=== PATIENT | male | born 1950 | race American Indian/Alaskan Native ===

== ENCOUNTER 2022-05-05 08:20 | Emergency (ER) | payer MEDICARE, OTHER ==
--- NOTE | 2022-05-05 09:21 | Cat Scan Report ---
CT HEAD WITHOUT CONTRAST INDICATION: neuro deficits <6hrs or sx present upon awakening. TECHNIQUE: All CT scans at this location are performed using CT dose reduction for ALARA by means of automated e xposure control. COMPARISON: CT 10/17/2021 FINDINGS: HEMORRHAGE: None. EXTRA-AXIAL SPACES: Normal in size and morphology for the patient's age. VENTRICULAR SYSTEM: Normal in size and morphology for the patient's age. BRAIN PARENCHYMA: Extensive white matter hypodensities are again noted consistent with microangiopath y. Chronic left maxwell radiata lacunar infarct is noted. Bilateral basal ganglia calcification is aga in noted. MIDLINE SHIFT OR HERNIATION: None. ORBITS: Normal as visualized. SOFT TISSUES OF HEAD: Normal. CALVARIUM: Normal. VISUALIZED PARANASAL SINUSES AND MASTOID AIR CELLS: Clear. ADDITIONAL FINDINGS: None. IMPRESSION: 1. No acute intracranial abnormality. Signer Name: Yousif Madrid MD Signed: 05/05/2022 9:17 AM Workstation Name: [id number]
[2022-05-05 10:01] LABS: Basophils # (Auto) 0.1 K/mm3 (0.0-0.1); Basophils % (Auto) 1.2 % (0.0-1.8); Eosinophils # (Auto) 0.1 K/mm3 (0.0-0.4); Eosinophils % (Auto) 1.5 % (0.0-4.3); Hematocrit 40.5 % (35.5-45.6); Hemoglobin 13.5 gm/dl (11.8-15.2); Lymphocytes % (Auto) 20.7 % (13.4-35.0); Mean Corpuscular HGB Conc 33 % (32-34); Mean Corpuscular Volume 94 fl (84-94); Monocytes # (Auto) 0.3 K/mm3 (0.0-0.8); Monocytes % (Auto) 7.3 % (0.0-7.3); Platelet Count 250 K/mm3 (140-440); Red Blood Count 4.32 M/mm3 (3.65-5.03); Red Cell Distribution Width 13.6 % (13.2-15.2)
[2022-05-05 10:03] LABS: INR 0.93 (0.87-1.13)
[2022-05-05 10:04] LABS: Partial Thromboplastin Time 26.5 Sec. (24.2-36.6)
[2022-05-05 10:33] LABS: BUN/Creatinine Ratio 14; Blood Urea Nitrogen 11 mg/dL (9-20); Calcium 9.6 mg/dL (8.4-10.2); Hemolysis Index 3
--- NOTE | 2022-05-05 10:44 | Emergency Department Report ---
HPI - General Chief Complaint: Dizziness - HPI HPI: Room 19 The patient is a 71-year-old male present with chief complaint of dizziness. The patient states he went to work this morning in his usual state of health. 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 The patient states he then walked to the break room and sat down and EMS was called. EMS reported the patient was hypertensive with a systolic of 189. The patient states that his symptoms lasted approximate 30 minutes and then subsided. Patient currently denies complaints. Patient denied ever having chest pain, shortness of breath, palpi tations or nausea/vomiting. Patient denies any preceding trauma. The patient's states that he works outside [employer] daily and does not stay hydrated ED Past Medical Hx - Past Medical History Previous Medical History?: Yes Hx CVA: Yes (Some residual left-sided weakness) Hx of Cancer: Yes (Prostate CA status post XRT) Additional medical history: Hypercholesterolemia - Surgical History Past Surgical History?: No - Family History Family history: no significant - Social History Smoking Status: Former Smoker (None since November 2021) Substance Use Type: None (Denies illicit drug use) - Medications Home Medications: Home Medications Medication Instructions Recorded Confirmed Last Taken Type Aspirin 81 mg PO QDAY #30 tablet 10/21/21 Unknown Rx AtorvaSTATin [Lipitor] 80 mg PO QHS #30 tablet 10/21/21 Unknown Rx Meclizine [Antivert] 25 mg PO TID PRN #20 05/05/22 Unknown Rx ED Review of Systems ROS: Stated complaint: DIZZY Other details as noted in HPI Constitutional: other ([place] hot) Eyes: denies: eye pain ENT: denies: throat pain Respiratory: denies: shortness of breath Cardiovascular: denies: chest pain, palpitations Endocrine: no symptoms reported Gastrointestinal: denies: nausea, vomiting Genitourinary: denies: dysuria Musculoskeletal: denies: back pain Neurological: vertigo. denies: headache Physical Exam - Physical Exam Vital Signs: Vital Signs 05/05/22 08:24 Temperature 98.7 F Pulse Rate 69 Respiratory 20 Rate Blood Pressure 135/77 [Right] O2 Sat by Pulse 100 Oximetry Vital Signs 05/05/22 05/05/22 08:24 11:14 Temperature 98.7 F 98.7 F Pulse Rate 69 62 Pulse Rate [ 65 Lying] Pulse Rate [ 71 Sitting] Pulse Rate [ 73 Standing] Respiratory 20 20 Rate Blood Pressure 139/83 Blood Pressure 144/77 [Lying] Blood Pressure 135/77 [Right] Blood Pressure 139/74 [Sitting] Blood Pressure 129/76 [Standing] O2 Sat by Pulse 100 100 Oximetry Physical Exam: GENERAL: The patient is well-developed well-nourished male lying on stretcher not appearing to be in acute distress. [] HEENT: Normocephalic. Atraumatic. Extraocular motions are intact. Patient has moist mucous membranes. NECK: Supple. Trachea midline CHEST/LUNGS: Clear to auscultation. There is no respiratory distress noted. HEART/CARDIOVASCULAR: Regular. There is no tachycardia. There is no gallop rub or murmur. ABDOMEN: Abdomen is soft, nontender. Patient has normal bowel sounds. There is no abdominal distention. SKIN: There is no rash. There is no edema. There is no diaphoresis. NEURO: The patient is awake, alert, and oriented. The patient is cooperative. The patient has no focal neurologic deficits. The patient has normal speech. GCS 15. Cranial nerves II through XII grossly intact. No nystagmus noted. There is no dysmetria noted with [id number] bilaterally MUSCULOSKELETAL: There is no evidence of acute injury. ED Course Vital Signs 05/05/22 08:24 Temperature 98.7 F Pulse Rate 69 Respiratory 20 Rate Blood Pressure 135/77 [Right] O2 Sat by Pulse 100 Oximetry ED Medical Decision Making - Lab Data Result diagrams: 05/05/22 09:11 05/05/22 09:11 Laboratory Tests 05/05/22 05/05/22 05/05/22 09:11 09:11 09:11 WBC 4.6 RBC 4.32 Hgb 13.5 Hct 40.5 MCV 94 MCH 31 MCHC 33 RDW 13.6 Plt Count 250 Lymph % (Auto) 20.7 [place] % (Auto) 7.3 Eos % (Auto) 1.5 Baso % (Auto) 1.2 Lymph # (Auto) 1.0 L [place] # (Auto) 0.3 Eos # (Auto) 0.1 Baso # (Auto) 0.1 Seg Neutrophils % 69.3 Seg Neutrophils # 3.2 PT 13.5 INR 0.93 APTT 26.5 Thrombin Time Sodium 138 Potassium 4.3 Chloride 102.1 Carbon Dioxide 25 Anion Gap 15 BUN 11 Creatinine 0.8 Estimated GFR > 60 BUN/Creatinine Ratio 14 Glucose 88 Calcium 9.6 Troponin T < 0.010 05/05/22 09:11 WBC RBC Hgb Hct MCV MCH MCHC RDW Plt Count Lymph % (Auto) [place] % (Auto) Eos % (Auto) Baso % (Auto) Lymph # (Auto) [place] # (Auto) Eos # (Auto) Baso # (Auto) Seg Neutrophils % Seg Neutrophils # PT INR APTT Thrombin Time 16.2 Sodium Potassium Chloride Carbon Dioxide Anion Gap BUN Creatinine Estimated GFR BUN/Creatinine Ratio Glucose Calcium Troponin T - EKG Data -: EKG Interpreted by Me EKG shows normal: sinus rhythm Rate: normal - EKG Data When compared to previous EKG there are: previous EKG unavailable Interpretation: normal EKG - Differential Diagnosis Symptomatic anemia, dehydration, orthostasis, electrolyte abnormality, vert Critical care attestation.: If time is entered above; I have spent that time in minutes in the direct care of this critically ill patient, excluding procedure time. ED Disposition Clinical Impression: Dizziness Disposition: 01 HOME / SELF CARE / HOMELESS Is pt being admited?: No Does the pt Need Aspirin: No Condition: Stable Additional Instructions: Return to the emergency department should you develop worsening symptoms, inability to tolerate food or liquids, high fever or any other concerns Prescriptions: Meclizine [Antivert] 25 mg PO TID PRN #20 PRN Reason: Vertigo Referrals: PORSHA DEAL MD [Staff Physician] - 3-5 Days (Dr. Deal is a neurologist. Please follow-up with him for further evaluation) Time of Disposition: 11:24
[2022-05-05 11:43] VITALS: BP 135/77
--- NOTE | 2022-05-07 17:28 | Electrocardiograph Report ---
[facility] Test Date: 2022-05-05 Test Time: 08:37:20 Pat Name: LOUIE PEÑA Department: ED Room: ED Gender: M [employer]: Wilber GARCIA RN : 1950 Requested By: TAMMY BECERRA Order Number: [id number] Reading MD: Asiya Malhotra Measurements Intervals [place] Rate: 63 P: 8 [place]: 172 QRS: 51 QRSD: 74 T: 44 QT: 401 QTc: 412 Interpretive Statements Sinus rhythm Compared to ECG 10/17/2021 22:39:20 No significant changes Electronically Signed On 05-07-2022 17:27:59 EDT by Asiya Malhotra
== END 2022-05-05 15:38 | disposition admitted as inpatient to this hospital (09) ==
LOC: ED 08:20
DX: R42 Dizziness and giddiness (principal); Z86.73 Personal history of transient ischemic attack (TIA), and cerebral infarction without residual deficits; E78.00 Pure hypercholesterolemia, unspecified; Z85.9 Personal history of malignant neoplasm, unspecified; Z87.891 Personal history of nicotine dependence
CPT/HCPCS: 36415; 70450; 80048; 84484; 85025; 85610; 85670; 85730; 93005; 99284